=== PATIENT | female | born 1960 | race Caucasian/White ===

== ENCOUNTER 2018-01-20 10:02 | Emergency (ER) | payer OTHER ==
[~2018-01-20] VITALS: Ht 165.1 cm; Wt 76.2 kg
[2018-01-20 10:37] LABS: NUCLEATED RBCS 0 /100WBC; WBC 3.5 thou/uL (4.0-11.0)
[2018-01-20 10:43] LABS: ABSOLUTE MONOCYTES 0.4 thou/uL (0.0-1.2); BASOPHILS 0.4 %; EOSINOPHILS 1.4 %; HEMATOCRIT 41.2 % (37.0-47.0); HEMOGLOBIN 13.9 gm/dL (12.0-15.0); LYMPHOCYTES 57.5 %; MCH 28.8 pg (26.0-34.0); MCHC 33.7 g/dL (28.0-37.0); MCV 85.4 fL (80.0-100.0); MONOCYTES 11.8 %; MPV 7.5 fl. (7.2-11.1); PLATELET COUNT* 189 thou/uL (150-400); POLYS 28.9 %; RBC 4.82 mil/uL (4.20-5.00); RDW-CV 13.7 % (10.5-14.5)
[2018-01-20 10:50] LABS: ANION GAP 9 mmol/L (7-16); BUN 13 mg/dL (7-18); CALCIUM 8.8 mg/dL (8.5-10.1); CHLORIDE 103 mmol/L (98-107); CO2 27 mmol/L (21-32); CREATININE 0.9 mg/dL (0.6-1.3); GLUCOSE 94 mg/dL (70-99); POTASSIUM 3.3 mmol/L (3.5-5.1); SODIUM 139 mmol/L (136-145)
[2018-01-20 11:02] LABS: ALBUMIN 3.6 g/dL (3.4-5.0); ALKALINE PHOSPHATASE 85 U/L (46-116); NT-PRO BRAIN NAT PEPTIDE 19 pg/mL (<300); SGOT 32 U/L (15-37); SGPT 42 U/L (30-65); TOTAL BILIRUBIN 0.4 mg/dL (<0.1-1.0); TOTAL PROTEIN 7.1 g/dL (6.4-8.2); TROPONIN-I LEVEL <0.06 ng/mL (<0.06)
[2018-01-20 11:18] LABS: INFLUENZA A ANTIGEN None Detected (None Detect); INFLUENZA B ANTIGEN None Detected (None Detect)
[2018-01-20] MEDS ORDERED: CLARITIN10 MG PO (12:22)
[2018-01-20] MEDS ORDERED: MUCINEX1200 MG PO (12:22)
[2018-01-20] MEDS ORDERED: DULERA 200 MCG/13 GM INH (12:25)
[2018-01-20] MEDS ORDERED: SUDAFED 12-HOU120 MG PO (12:25)
[2018-01-20] MEDS ORDERED: PROAIR HFA8.5 GM INH (12:26)
[2018-01-20] MEDS ORDERED: ZPAK PO (12:33)
[2018-01-20] MEDS ORDERED: PREDNISONE50 MG PO (12:33)
[2018-01-20] MEDS ORDERED: ALBUTEROL2.5 MG/31 INH (12:33)
[2018-01-20 12:49] VITALS: BP 105/62
--- NOTE | 2018-01-20 16:10 | EKG ---
[place] [address] ELECTROCARDIOGRAM REPORT Name: JULIET EATON Room: [facility]#: [id number] Admission: 01/20/18 Attend Phys: Discharge: 01/20/18 Date of : 62 Report #: [id number] THIS REPORT FOR: //name// [facility] ED Test Date: 2018-01-20 Test Time: 11:01:32 Pat Name: JULIET EATON Department: Room: Gender: F Document Management Analyst: Monica MISHRA : 1960 Requested By: Albino English Order Number: [id number] MD: Nils Bonilla Measurements Intervals [place] Rate: 59 P: 33 RI: 191 QRS: 11 QRSD: 84 T: 58 QT: 423 QTc: 419 Interpretive Statements Sinus rhythm Low voltage, precordial leads No previous ECG available for comparison Electronically Signed On 01-20-2018 16:10:33 PRESETTER OPERATOR by Nils Bonilla [email or web address] <ELECTRONICALLY SIGNED> By: Nils Bonilla MD, [facility] 01/20/18 1610 1101 1101 Nils Bonilla MD, FACC /EPI
== END 2018-01-20 12:50 | disposition home or self-care (01) ==
LOC: M.ERS 10:02
PROVIDERS: Emergency Medicine Emergency Medical Services
DX: J40 Bronchitis, not specified as acute or chronic (principal)

== ENCOUNTER → 2021-11-24 | Outpatient (CLI) | payer OTHER ==
[~2021-11-24] MED LIST: ALBUTEROL2.5 MG/31 INH; CLARITIN10 MG PO; DULERA 200 MCG/13 GM INH; MUCINEX1200 MG PO; PREDNISONE50 MG PO; PROAIR HFA8.5 GM INH; SUDAFED 12-HOU120 MG PO; ZPAK PO
== END ==
LOC: M.RAD 11-10 16:18
PROVIDERS: ATTEND Internal Medicine
DX: N64.89 Other specified disorders of breast (principal)